=== PATIENT | male | born 1970 | race Caucasian/White ===

== ENCOUNTER 2016-11-19 12:24 | Inpatient (IN) | payer OTHER ==
[~2016-11-19] VITALS: Ht 185.4 cm; Wt 99.9 kg
[2016-11-19] VITALS (7 sets, daily range): BP systolic 109–139; BP diastolic 70–89
--- NOTE | ~2016-11-19 | ST ---
[place], [place] EXERCISE STRESS TEST REPORT [facility]: [id number] UNIT #: [id number] ROOM: [id number] DOCTOR: HUI CHRISTIANSEN MD BIRTHDATE: [birth year] DOS: 11/20/2016 REFERRING PHYSICIAN: Dr. Rashid. INDICATION: Chest pain. The patient underwent standard protocol Lexiscan stress test. The patient's baseline EKG showed normal sinus with nonspecific ST-T wave changes. The patient's baseline heart rate was 58 with blood pressure 112/60. The patient's peak heart rate was 93 with blood pressure 90/54. The patient had some worsening of his baseline chest pain. The patient had no ST changes. The patient had no arrhythmias. SUMMARY OF FINDINGS: Unremarkable Lexiscan stress EKG. Please see separate report for perfusion scan results. HUI CHRISTIANSEN MD CM:STRESS:EXERCISE STRESS TEST REPORT [id number] HUI CHRISTIANSEN MD
[~2016-11-19 12:24] MED LIST: ANAPROX DS550 MG PO; ASPIRIN81 M1 PO; ATIVAN0.5 MG PO; BETA BLOCKER; CENTRUM1 TAB PO; CLEOCIN150 MG PO; CLONIDINE PO; DIAZEPAM2 MG PO; GABAPENTIN100 M2 PO; LINZESS145 MC1 PO; LOPRESSOR25 MG PO; LYRICA25 MG PO; LYRICA300 MG PO; MELOXICAM15 MG PO; MORPHINE SULFATE PO; MOTRIN800 MG PO; MOVANTIK25 MG PO; NICOTINE T21 MG/24 H T; NITROSTAT0.4 MG SL; PERCOCET 325 MG1 TA2 PO; PERCOCET 325 MG1 TA5 PO; PERCOCET 325 MG1 TA7 PO; Peridex 473 ML473 ML PO; TRAZODONE50 MG PO; VICODIN 5/500 505 MG PO; VICODIN PO; [UNRECOGNIZED DRUG - OTHER] PO
[2016-11-19] MEDS ORDERED: PERCOCET 325 MG1 TA7 PO ×2 (12:43→19:32)
[2016-11-19 12:52] LABS: BASO % 0.3 % (0.0-1.0); EOS # 0.2 10*3/uL (0.0-0.4); EOS % 1.6 % (1.0-4.0); HEMATOCRIT 50.1 % (42.0-52.0); HEMOGLOBIN 16.7 g/dl (14.0-18.0); LYMPH # 2.2 10*3/uL (1.3-4.4); LYMPH % 20.7 % (27.0-41.0); MEAN CELL VOLUME 82.3 fl (80.0-94.0); MEAN CORPUSCULAR HGB 27.4 pg (27.0-31.0); MEAN CORPUSCULAR HGB CONC 33.3 g/dl (33.0-37.0); MEAN PLATELET VOLUME 9.9 fl (9.6-12.3); MONO # 0.8 10*3/uL (0.1-1.0); MONO % 7.6 % (3.0-9.0); NEUT # 7.3 10*3/uL (2.3-7.9); NEUT % 69.5 % (47.0-73.0); PLATELET COUNT AUTOMATED 289 10*3/uL (130-400); RED BLOOD COUNT 6.09 10*6/uL (4.50-5.90); RED CELL DISTRI WIDTH 13.1 % (0-14.5); WHITE BLOOD COUNT 10.5 10*3/uL (4.8-10.8)
[2016-11-19 13:02] LABS: INTERNATIONAL NORM RATIO 1.1 (2.0-3.5); PROTHROMBIN TIME 11.4 SECONDS (9.0-12.4)
[2016-11-19 13:09] LABS: ALBUMIN 4.4 gm/dl (3.1-4.5); ALKALINE PHOSPHATASE 63 U/L (45-117); BILIRUBIN, TOTAL 0.6 mg/dl (0.2-1.0); BUN 12 mg/dl (7-24); CARBON DIOXIDE 26 mmol/L (21-32); CHLORIDE 100 mmol/L (98-107); EST GLOM FILT AFRICAN AMERICAN > 60 ml/min; GLUCOSE 88 mg/dL (65-99); MAGNESIUM 2.1 mg/dL (1.5-2.1); POTASSIUM 3.8 mmol/L (3.5-5.1); SGOT/AST 10 IU/L (3-35); SGPT/ALT 14 U/L (12-78); SODIUM 135 mmol/L (136-145); TOTAL PROTEIN 7.6 gm/dL (6.4-8.2)
[2016-11-19 13:12] LABS: TROPONIN I < 0.015 ng/ml (<0.045)
[2016-11-19] MEDS ORDERED: ZYRTEC10 MG PO (14:11)
[2016-11-19] MEDS ORDERED: CARDIZEM120 MG PO (14:12)
[2016-11-19] MEDS ORDERED: HYDR25T PO (14:12)
[2016-11-19] MEDS ORDERED: EFFEXOR XR75 M1 PO (14:13)
[2016-11-19] MEDS ORDERED: LYRICA300 MG PO (14:55)
[2016-11-19 16:39] LABS: BILIRUBIN NEGATIVE (NEGATIVE); BLOOD NEGATIVE (NEGATIVE); CLARITY CLEAR (CLEAR); COLOR YELLOW (YELLOW); GLUCOSE NEGATIVE (NEGATIVE); KETONE 1+ (NEGATIVE); LEUKO ESTERASE NEGATIVE (NEGATIVE); NITRITE NEGATIVE (NEGATIVE); PROTEIN NEGATIVE (NEGATIVE); SPECIFIC GRAVITY <= 1.005 (1.005-1.030); UROBILINOGEN 0.2 E.U./dl (0.2-1.0)
[2016-11-19 16:44] LABS: EPITHELIAL CELLS 0-2; URINE REFLEX COMMENT NO (NO); WBC 0-2 wbc/hpf (0-5)
[2016-11-19 16:48] LABS: URINE AMPHETAMINES < 1000 (1000ng/ml); URINE BARBITURATES < 200 (200ng/ml); URINE COCAINE < 300 (300ng/ml)
[2016-11-20] VITALS: BP 124/60
[2016-11-20 06:42] LABS: HEMATOCRIT 50.7 % (42.0-52.0); HEMOGLOBIN 16.6 g/dl (14.0-18.0); MEAN CELL VOLUME 85.2 fl (80.0-94.0); MEAN CORPUSCULAR HGB 27.9 pg (27.0-31.0); MEAN CORPUSCULAR HGB CONC 32.7 g/dl (33.0-37.0); MEAN PLATELET VOLUME 10.5 fl (9.6-12.3); PLATELET COUNT AUTOMATED 327 10*3/uL (130-400); RED BLOOD COUNT 5.95 10*6/uL (4.50-5.90); RED CELL DISTRI WIDTH 13.2 % (0-14.5)
[2016-11-20 07:14] LABS: ATYPICAL LYMPHS 5 % (0-0); BUN 12 mg/dl (7-24); CARBON DIOXIDE 30 mmol/L (21-32); CHLORIDE 102 mmol/L (98-107); CHOLESTEROL 180 mg/dL (<200); EOSINOPHIL # 0.5 10*3/uL (0-0.4); EOSINOPHILS 4 % (1-4); EST GLOM FILT AFRICAN AMERICAN > 60 ml/min; FREE T4 0.94 ng/dl (0.76-1.46); GLUCOSE 98 mg/dL (65-99); HDL CHOLESTEROL 45 mg/dl (40-60); LDL CHOLESTEROL 109 mg/dL (9-159); LYMPHOCYTE # 5.9 10*3/uL (1.3-4.4); MAGNESIUM 2.3 mg/dL (1.5-2.1); MONOCYTE # 0.3 10*3/uL (0.1-1.0); NEUTROPHIL # 6.4 10*3/uL (2.3-7.9); NEUTROPHILS 49 % (47-73); PHOSPHOROUS 3.3 mg/dL (2.5-4.9); PLATELET SUFFICIENCY NORMAL (NORMAL); POTASSIUM 3.7 mmol/L (3.5-5.1); SODIUM 139 mmol/L (136-145); TOTAL CELLS COUNTED 100 #CELLS; TRIGLYCERIDES 130 mg/dl (<150); VLDL CHOLESTEROL 26 mg/dL (6-40)
[2016-11-20 07:18] LABS: PROTHROMBIN TIME 10.5 SECONDS (9.0-12.4)
[2016-11-20 07:23] LABS: HEMOGLOBIN A1c 5.5 % (4.8-5.6)
[2016-11-20 07:35] LABS: VITAMIN D, 25-HYDROXY 34.6 ng/mL (30-100)
[2016-11-20 07:36] LABS: FOLIC ACID 12.9 ng/mL (>5.38)
[2016-11-20 08:00] VITALS: BP 107/70
== END 2016-11-20 13:50 | disposition left against medical advice (07) | DRG 303 ==
LOC: ED 12:24 → EDHOLD 13:29 → 5E 13:29
PROVIDERS: Family Medicine; Student in an Organized Health Care Education/Training Program
PROC: 4A02XM4 Measurement of Cardiac Total Activity, External Approach (ICD-10-PCS; principal; 2016-11-20)
PROC: 3E073KZ Introduction of Other Diagnostic Substance into Coronary Artery, Percutaneous Approach (ICD-10-PCS; 2016-11-20)
DX: I25.119 Atherosclerotic heart disease of native coronary artery with unspecified angina pectoris (principal); G62.9 Polyneuropathy, unspecified; I10 Essential (primary) hypertension; I25.2 Old myocardial infarction; Z53.21 Procedure and treatment not carried out due to patient leaving prior to being seen by health care provider; F17.210 Nicotine dependence, cigarettes, uncomplicated; M54.5 Low back pain; Z82.49 Family history of ischemic heart disease and other diseases of the circulatory system; Z88.0 Allergy status to penicillin; Z88.6 Allergy status to analgesic agent; Z88.1 Allergy status to other antibiotic agents; Z79.82 Long term (current) use of aspirin; Z79.1 Long term (current) use of non-steroidal anti-inflammatories (NSAID); Z79.899 Other long term (current) drug therapy; G89.29 Other chronic pain